=== PATIENT | female | born 1980 | race Caucasian/White ===

== ENCOUNTER 2018-07-28 12:12 | Emergency (ER) | payer MEDICAID, OTHER ==
[~2018-07-28] VITALS: Ht 167.6 cm; Wt 59.1 kg
[~2018-07-28 12:12] MED LIST: BREX1TAB PO; OMEP20 PO
[2018-07-28 13:21] LABS: BASOPHILS % (AUTO) 2.6 % (0.0-2.0); EOSINOPHILS % (AUTO) 2.4 % (1.0-6.0); HEMATOCRIT 43.3 % (36-46); HEMOGLOBIN 14.4 g/dL (12.0-16.0); LYMPHOCYTES # (AUTO) 2.9 K/uL (1.0-4.8); LYMPHOCYTES % (AUTO) 48.1 % (22.0-44.0); MEAN CORPUSCULAR HEMOGLOBIN 32.4 pg (26.0-34.0); MEAN CORPUSCULAR HGB CONC 33.3 G/dL (31.0-37.0); MEAN CORPUSCULAR VOLUME 97 fL (80-100); MONOCYTES # (AUTO) 0.2 K/uL (0.1-1.0); MONOCYTES % (AUTO) 2.5 % (2.0-9.0); NEUTROPHILS # (AUTO) 2.7 K/uL (1.8-7.7); NEUTROPHILS % (AUTO) 44.4 % (40.0-70.0); PLATELET COUNT (AUTO) 210 K/uL (150-450); RED BLOOD CELL COUNT(AUTO) 4.45 MIL/uL (4.00-5.20); RED CELL DISTRIBUTION WIDTH 16.3 % (11.5-14.5)
[2018-07-28 13:28] LABS: ANION GAP 17 mmol/L (8-16); CALCIUM, TOTAL 8.8 mg/dL (8.8-10.5); CARBON DIOXIDE 23 mmol/L (22-29); CHLORIDE 104 mmol/L (98-107); CREATININE 0.49 mg/dL (0.60-1.30); GLOMERULAR FILTR. RATE CALC > 60 mL/min (>60); GLUCOSE,RANDOM 89 mg/dL (70-110); POTASSIUM 3.6 mmol/L (3.5-5.1); SODIUM SERUM 144 mmol/L (136-145); UREA NITROGEN, BLOOD 6 mg/dL (7-18)
[2018-07-28 13:34] LABS: ALANINE AMINOTRANSFERASE 85 U/L (12-78); ALBUMIN 4.5 g/dL (3.4-5.0); ALKALINE PHOSPHATASE 208 U/L (46-116); ASPARTATE AMINOTRANSFERASE 131 U/L (15-37); BILIRUBIN,TOTAL 1.1 mg/dL (0.1-1.0); TOTAL PROTEIN, SERUM 8.8 g/dL (6.4-8.2)
[2018-07-28] MEDS ORDERED: SUMAtriptan SUCCINATE 6 MG/0.5 ML VIAL SQ ONE ×2 (14:45→17:30)
[2018-07-28 18:31] VITALS: BP 111/68
== END 2018-07-28 19:19 | disposition home or self-care (01) ==
LOC: EMS 12:12
DX: F32.9 Major depressive disorder, single episode, unspecified (principal); F10.129 Alcohol abuse with intoxication, unspecified; G43.909 Migraine, unspecified, not intractable, without status migrainosus; K21.9 Gastro-esophageal reflux disease without esophagitis; Z79.899 Other long term (current) drug therapy; Z91.011 Allergy to milk products; Z88.6 Allergy status to analgesic agent; Y90.8 Blood alcohol level of 240 mg/100 ml or more
CPT/HCPCS: 36415; 80053; 85025; 96372; 99285; G0480; J3030